=== PATIENT | male | born 1955 | race African-American/Black ===

== ENCOUNTER 2018-09-04 07:06 | Inpatient (IN) ==
[2018-09-04] MEDS ORDERED: Chlorhexidine 4% Topical 120 APPLIC/120 ML Bottle TOPICAL SCH (07:45)
[2018-09-04] MEDS ORDERED: Sodium Chlor 0.9% Inj 500 ML IV.CONT ONE (07:45)
[2018-09-04] MEDS ORDERED: Metoprolol Tartrate 25 MG Tablet PO ONE (07:45)
[2018-09-04] MEDS ORDERED: Chlorhexidine Gluconate 2% 1 Pack (2 Cloths) TOPICAL ONE (07:45)
[2018-09-04] MEDS ORDERED: Dexamethasone Inj 20 MG/5 ML Vial ONE (07:48)
[2018-09-04] MEDS ORDERED: Sodium Chlor 0.9% Inj 40 ML, Bupivacaine Liposo PF 1.3% Inj 20 ML P-ARTICULR SCH ×2 (08:00)
[2018-09-04] MEDS ORDERED: TRANEXAMIC ACID IV.SIG SCH (08:00)
[2018-09-04] MEDS ORDERED: Vancomycin Inj 1,000 MG in Sodium Chlor 0.9% Inj 250 ML IV.SIG SCH (08:00)
[2018-09-04] MEDS ORDERED: ceFAZolin 2 GM Premix Inj 2 GM/50 ML PIGGYBACK IV.SIG SCH ×3 (08:00→17:00)
[2018-09-04] MEDS ORDERED: SODIUM CHLOR 0.9% IV.SIG SCH (08:00)
[2018-09-04] MEDS ORDERED: Tranexamic Acid Inj 3,000 MG in Sodium Chlor 0.9% Inj 100 ML P-ARTICULR SCH (08:00)
[2018-09-04] MEDS ORDERED: Post-op Orders (for Pharmacy) OTHER STA (08:35)
[2018-09-04] MEDS ORDERED: Bisacodyl 10 MG Supp RECTAL PRN (08:35)
[2018-09-04] MEDS ORDERED: HYDROmorphone PF Inj 1 MG/ML Ampul IV.PUSH PRN (08:35)
[2018-09-04] MEDS ORDERED: *Enalaprilat Inj 1.25 MG/ML Vial IV.PUSH ONE ×2 (12:06→15:44)
--- NOTE | 2018-09-04 12:43 | P.OP ---
Procedure: PREOPERATIVE DIAGNOSIS: Right hip osteoarthritis. POSTOPERATIVE DIAGNOSIS: Right hip osteoarthritis. PROCEDURE PERFORMED: Right total hip arthroplasty. SURGEON: Dr. Carlos Campbell M.D. DRILLER BRAKE LINING: IMTIAZ Molina. ANESTHESIA: General. ESTIMATED BLOOD LOSS: 250 mL. COMPLICATIONS: None. IMPLANTS USED: Depuy Corail femoral stem []11 standard Blauvelt Gripsion Cup []54 Poly insert liner neutral []36/54 femoral head [] 36 mm ceramic neck length [] +5 JUSTIFICATION: This patient presents to the undersigned at the orthopedic clinic with chief complaints of severe Right hip pain. The pain is severe and constant and interferes with activities of daily living. The patient has failed greater than 3 months of nonoperative conservative treatment to include analgesic and nonsteroidal anti-inflammatory medications, physical therapy, cortisone injections, activity modification, weight loss, home exercise program, and use of ambulatory assistive aids. X-rays of right hip reveal severe osteoarthritis with [id number] joint space narrowing, subchondral sclerosis, subchondral cysts, osteophyte formation with subluxation. The patient was counseled on risks, benefits, and alternatives to a total hip arthroplasty. The risks were discussed, which include, but are not limited to, anesthesia, bleeding, infection, damage to nerves and blood vessels , pain, stiffness, fracture, dislocations, leg length discrepancy, failure of components, blood clots, pulmonary embolus, and even . The patient favored the benefits over the risks, did wish to proceed with surgery. PROCEDURE IN DETAIL: Written consent was obtained. The patient was identified by name, taken to the operating room and placed supine on the operating table. General anesthesia was administered. The patient was preoperative IV antibiotics. The patient right and left feet were placed in the padded traction boots. The right hip and lower extremity was then prepped and draped using isopropyl alcohol, Hibiclens solution and ChloraPrep solution. After a timeout was performed, a longitudinal incision was made over the anterior aspect of the right hip. The fascia griffin was incised. Dissection was carried over the tensor fascia griffin beneath the rectus femoris. After exposure of the anterior capsule, a capsulotomy incision was performed. An oscillating saw was used to perform a femoral neck cut. The osteoarthritic femoral head and neck was removed. A 10 blade scalpel was used to excise the labrum. Sequential reaming of the acetabulum was performed. Subsequently a porous-coated titanium acetabular cup was implanted in a press manner in approximately 45 degrees of abduction and 10 degrees of anteversion. There was good purchase and fixation after insertion of the acetabular cup. The cup was tested manually and noted to have excellent stability and fixation. A neutral highly cross-linked polyethylene liner was placed within the cup. The liner was impacted in place for fixation and tested for stability. Attention was turned to the femur where the leg was externally rotated, extended and adducted. The capsule was released off the undersurface of the greater trochanter to allow for elevation and lateralization of the femur. A box cutting osteotome was used to gain entrance into the intramedullary canal of the femur. This was followed by a canal finder and sequential broaching. A calcar planer to plane the calcar. A trial head and neck combination were evaluated prior to implantation of final components. With the final implants placed, the leg could achieve external rotation of 70 degrees and extension to the the ground without evidence of anterior instability or impingement. Soft tissue tension felt appropriate. Fluoroscopic imaging showed appropriate implantation of components. The Surgical wound was thoroughly irrigated with sterile saline Pulse Lavage antibiotic impregnated solution. The fascial layer was closed with #1 Vicryl suture, subcutaneous layer with 2-0 Vicryl sutures. The skin was closed with Dermabond. Sterile dressing applied. No intraoperative complications noted. Mat Hill, Physician Strawhat Blocking Operator, Certified was present for the entire procedure to include the patient position, the procedure itself. The medical necessity of a physician respiratory therapy assistant was indicated in this case due to the complexity of the procedure. He assisted with position of the patient along with the ear itself. During the procedure he assisted with exposure and the retraction of muscle, tendon, bone, and neurovascular vessel structures. He assisted with the preparation of bone and also implantation of the prosthetic replacement. There was a surgical instrument repair specialist in the room that assisted with management of instruments, but was not available to assist with the surgery itself. Carlos Tucker MD Surgeon: Carlos Tucker MD
[2018-09-04] MEDS ORDERED: fentaNYL Citrate Inj 100 MCG/2 ML Ampul ONE ×2 (13:05)
[2018-09-04] MEDS ORDERED: *HYDROmorphone PF Inj 1 MG/ML Ampul PERIprocedural Use ONLY ONE ×2 (13:24→13:43)
--- NOTE | 2018-09-04 14:14 | XR ---
EXAM DATE: 09/04/2018 2:05 PM EST AGE/SEX: 62 years / Male INDICATIONS: Post op right hip surgery. CLINICAL DATA: This is the patient's initial encounter. Patient reports that signs and symptoms have been present for 1 day and indicates a pain score of Nonresponsive. MEDICAL/SURGICAL HISTORY: None. . left hip surgery. COMPARISON: No prior exams available for comparison. FINDINGS: The patient is status post right total hip arthroplasty. No acute fracture or dislocation is noted. CONCLUSION: 1. No acute fracture or dislocation. 2. Status post right total hip arthroplasty. Electronically signed by: Victorino Renee MD Board Certified Radiologist 09/04/2018 2:12 PM EST
[2018-09-04] MEDS: Senna/Docusate Sodium 8.6/50 MG Tablet PO SCH ×2 (15:10→22:49)
[2018-09-04] MEDS: Multivitamin/Minerals Therapeutic Tablet PO SCH ×2 (15:11→22:49)
[2018-09-04] MEDS ORDERED: ceFAZolin 1 GM Premix Inj 1 GM/50 ML PIGGYBACK IV.SIG ONE (17:06)
--- NOTE | 2018-09-04 17:16 | XR ---
EXAM DATE: 09/04/2018 1:20 PM EST AGE/SEX: 62 years / Male INDICATIONS: Right total hip arthroplasty. CLINICAL DATA: This is the patient's initial encounter. Patient reports that signs and symptoms have been present for 1 day and indicates a pain score of Nonresponsive. MEDICAL/SURGICAL HISTORY: Non-responsive. Non-responsive. COMPARISON: No prior exams available for comparison. CONCLUSION: Fluoroscopic images during right hip arthroplasty. Electronically signed by: Anant Arevalo MD Board Certified Radiologist 09/04/2018 5:14 PM EST
[2018-09-04] MEDS: ceFAZolin 1 GM Premix Inj 1 GM/50 ML PIGGYBACK IV.SIG SCH (17:31)
[2018-09-04] MEDS ORDERED: Zolpidem Tartrate 5 MG Tablet PO PRN (21:00)
[2018-09-05] MEDS: ceFAZolin 1 GM Premix Inj 1 GM/50 ML PIGGYBACK IV.SIG SCH ×2 (01:57→08:20)
[2018-09-05 07:03] LABS: Hematocrit 29.8 % (39.0-51.0); Hemoglobin 10.4 gm/dL (13.0-17.0)
--- NOTE | 2018-09-05 08:17 | P.PNOP ---
Subjective Interval history: doing well. pain controlled. Physical Exam Vital signs: Vital Signs 09/04/18 13:00 09/04/18 13:15 09/04/18 13:30 Temperature 97.5 F L Pulse Rate 78 68 72 Respiratory Rate 16 16 16 Blood Pressure 138/73 130/73 138/77 Pulse Oximetry 100 98 98 09/04/18 13:45 09/04/18 14:00 09/04/18 14:30 Temperature Pulse Rate 62 68 64 Respiratory Rate 16 16 16 Blood Pressure 150/89 H 158/88 H 159/89 H Pulse Oximetry 100 99 100 09/04/18 15:00 09/04/18 16:00 09/04/18 17:45 Temperature 97.5 F L Pulse Rate 62 72 71 Respiratory Rate 16 16 16 Blood Pressure 163/90 H 117/76 136/85 Pulse Oximetry 100 98 100 09/04/18 20:00 09/05/18 00:00 09/05/18 01:00 Temperature 97.9 F 97.5 F L Pulse Rate 82 69 Respiratory Rate 18 18 18 Blood Pressure 116/69 130/75 Pulse Oximetry 98 100 09/05/18 04:00 Temperature 97.8 F Pulse Rate 67 Respiratory Rate 18 Blood Pressure 130/76 Pulse Oximetry 98 Intake & Output 09/04/18 09/05/18 09/05/18 18:59 06:59 18:59 Intake Total 2230.86 / 2230.86 422 / 422 Output Total 300 / 300 1000 / 1000 Balance 1930.86 / 1930.86 -578 / -578 Weight 72.4 kg 73 kg Intake: IV 590.86 / 590.86 50 / 50 Cyklokapron Inj 1,086 MG In NS 110.86 / 110.86 Inj 100 ML @ 200 mls/hr IV.SIG ASSISTANT FILM EDITOR KATHARINE Rx#:[id number] Vancomycin Inj 1,000 MG In NS 250 / 250 Inj 250 ML @ 250 mls/hr IV.SIG ASSISTANT FILM EDITOR KATHARINE Rx#:[id number] Ancef 1 GM Premix Inj 1 gm In 50 / 50 50 / 50 50 ml @ 100 mls/hr IV.SIG Q8H KATHARINE Rx#:[id number] Ancef 2 GM Premix Inj 2 gm In 50 / 50 50 ml @ 100 mls/hr IV.SIG Q6H KATHARINE Rx#:[id number] Cyklokapron Inj 3,000 MG In NS 130 / 130 Inj 100 ML @ 200 mls/hr P- ARTICULR ASSISTANT FILM EDITOR [facility] Rx#: [id number] Oral 240 / 240 372 / 372 Anesthesia Amount 1400 / 1400 Output: Urine 1000 / 1000 Estimated Blood Loss 300 / 300 Other: Date of Last Bowel Movement 09/04/18 09/03/18 Weight On Admission 72.4 kg Narrative: in bed, nad dressing c/d/i neg homans nvi Results - Labs CBC & Chem 7: 09/05/18 00:57 Laboratory Results - last 24 hr 09/04/18 09/05/18 07:44 00:57 Hgb 10.4 L Hct 29.8 L Blood Type B Positive Antibody Screen Negative - Imaging Impressions Hip X-Ray 09/04/18 00:00 CONCLUSION: Fluoroscopic images during right hip arthroplasty. Hip X-Ray 09/04/18 08:34 CONCLUSION: 1. No acute fracture or dislocation. 2. Status post right total hip arthroplasty. Assessment and Plan - Ortho Post Op Day # 1 - Assessment and Plan s/p R KRANTHI wbat maintain dressing asa 81 d/c planning home with [facility] and pt f/up dr. chand 2 weeks cleared today
--- NOTE | 2018-09-05 08:18 | P.DCO ---
- Physical Therapy Physical Therapy: Gait training, Safety evaluation Hip: Total hip, Protocol: Right Right Lower Extremity Weight Bearing: Weight bearing as tolerated - Nursing RN days per week: 1 Nursing: Dressing changes Dressing changes: Daily dressing change - Certification Need for Home Health services: I have seen patient Miguel Goyal on 09/05/18. My clinical findings support the need for the requested home health care services because: Need for Home Health Services: Limited ability to care for self, High risk of falls Homebound Certification: I certify that my clinical findings support that this patient is homebound because: Homebound Certification: Post-op weakness, Unsteady gait/balance
[2018-09-05] MEDS: Multivitamin/Minerals Therapeutic Tablet PO SCH (08:19)
[2018-09-05] MEDS: Senna/Docusate Sodium 8.6/50 MG Tablet PO SCH (08:20)
--- NOTE | 2018-09-07 10:30 | MD ---
cc: Carlos Tucker MD DATE OF DISCHARGE: 09/05/2018 ADMITTING DIAGNOSIS: Severe degenerative osteoarthritis, right hip. DISCHARGE DIAGNOSIS: Severe degenerative osteoarthritis, right hip. HISTORY OF PRESENT ILLNESS: The patient is a 62-year-old male who patient presented to the Orthopedic clinic for evaluation by Dr. Carlos Tucker regarding severe and progressive right hip pain. The patient has had progressive right hip pain for many years and is currently inhibiting his activities of daily living. He notes he has a severe aching sensation with weightbearing activities. He has no alleviating factors, although in the past he has tried medications, assistive devices, physical therapy, home exercises without relief of symptoms. He does have a history of a well-functioning left total hip arthroplasty from [place], [place]. The patient has x-ray evidence of severe degenerative osteoarthritis of the right hip. While in the office, the patient was counseled on his diagnosis and treatment options. Risks, benefits, and indications all were discussed. The patient is receiving surgical intervention to include a right total hip arthroplasty. DATE OF SURGERY: 09/04/2018 Right total hip arthroplasty, anterior approach. POSTOP: After surgery, the patient was admitted to [facility] where he received appropriate medical management, pain control, DVT prophylaxis, as well as physical therapy. DISCHARGE: Once we , the patient had been cleared to go home with home healthcare and home physical therapies, in stable condition. He may weight bear as tolerated. He has been instructed on appropriate wound care management. He was provided prescriptions for pain control and DVT prophylactic medication. He has also been provided a followup appointment approximately 2 weeks from date of surgery. The patient has asked appropriate questions which have been answered. The patient has been discharged. Dictated by YULY Molina Carlos Tucker MD JWKaterina/merrill/artur , 02:11 PM , 02:19 PM
== END 2018-09-05 14:21 | disposition home health service (06) ==
LOC: HSDI 07:06 → N06 17:32
PROVIDERS: ADMIT Orthopaedic Surgery Sports Medicine; ATTEND Orthopaedic Surgery Sports Medicine